=== PATIENT | female | born 1995 | race Asian ===

== ENCOUNTER 2018-02-28 21:29 | Emergency (ER) | payer OTHER ==
[~2018-02-28] VITALS: Ht 162.6 cm; Wt 58.3 kg
[2018-02-28 21:31] VITALS: BP 128/70; PULSE 87; TEMP 36.6; O2SAT 100; Ht 162.6 cm; Wt 58.3 kg
[2018-02-28] MEDS ORDERED: ACETAMINOPHEN 500 MG TAB PO STA (21:44)
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
== END 2018-02-28 22:39 | disposition home or self-care (01) ==
LOC: C.EDA 21:33
DX: M25.552 Pain in left hip (principal); V99.XXXA Unspecified transport accident, initial encounter